=== PATIENT | male | born 1960 | race Caucasian/White ===

== ENCOUNTER 2024-02-17 09:43 | Outpatient (CLI) | payer MEDICARE | END 2024-02-17 09:44 | disposition home or self-care (01) | LOC: BICMRI 09:43 | PROVIDERS: ATTEND Family Medicine Sports Medicine | DX: M16.11 Unilateral primary osteoarthritis, right hip (principal); M25.551 Pain in right hip; S73.101A Unspecified sprain of right hip, initial encounter ==